=== PATIENT | male | born 1950 | race Caucasian/White ===

== ENCOUNTER → 2018-12-23 | Outpatient (CLI) | payer MEDICARE ==
[~2018-12-23] MED LIST: ALLEGRA180 MG; BENICAR HCT 401 EAC1; CARDIZEM30 MG; CELEBREX 200 M200 M1; FLOMAX0.4 MG PO; HYDROXYCHLOROQ200 M1 PO; LEXAPRO; NORCO 5-325 TA1 EACH PO; [UNRECOGNIZED DRUG - OTHER]
== END ==
LOC: M.ULTRA 12:53
DX: R10.32 Left lower quadrant pain (principal); M79.605 Pain in left leg; I73.9 Peripheral vascular disease, unspecified

== ENCOUNTER 2018-12-27 10:19 | Outpatient (CLI) | payer MEDICARE ==
[~2018-12-27] VITALS: Ht 175.3 cm; Wt 108.9 kg
[~2018-12-27 10:19] MED LIST changes: -CARDIZEM30 MG; -CELEBREX 200 M200 M1; -FLOMAX0.4 MG PO; -HYDROXYCHLOROQ200 M1 PO; -NORCO 5-325 TA1 EACH PO
[2018-12-27] MEDS ORDERED: HYDROXYCHLOROQ200 M1 PO (10:33)
[2018-12-27] MEDS ORDERED: CARDIZEM30 MG (10:33)
[2018-12-27] MEDS ORDERED: FLOMAX0.4 MG PO (10:33)
[2018-12-27] MEDS ORDERED: CELEBREX 200 M200 M1 (10:34)
[2018-12-27 11:13] LABS: ABSOLUTE BASOPHILS 0.1 thou/uL (0.0-0.2); ABSOLUTE EOSINOPHILS 0.4 thou/uL (0.0-0.7); ABSOLUTE LYMPHOCYTES 1.3 thou/uL (0.8-5.3); ABSOLUTE MONOCYTES 0.5 thou/uL (0.0-1.2); ABSOLUTE NEUTROPHILS 3.7 thou/uL (1.6-8.1); BASOPHILS 1.1 %; EOSINOPHILS 6.1 %; HEMATOCRIT 36.5 % (42.0-52.0); HEMOGLOBIN 12.9 gm/dL (14.0-18.0); LYMPHOCYTES 21.9 %; MCH 30.7 pg (26.0-34.0); MCHC 35.5 g/dL (28.0-37.0); MCV 86.6 fL (80.0-100.0); MONOCYTES 9.1 %; MPV 7.2 fl. (7.2-11.1); NUCLEATED RBCS 0 /100WBC; PLATELET COUNT* 251 thou/uL (150-400); POLYS 61.8 %; RBC 4.21 mil/uL (4.50-6.00); RDW-CV 13.9 % (10.5-14.5); WBC 5.9 thou/uL (4.0-11.0)
[2018-12-27 11:27] LABS: URINE BILIRUBIN NEGATIVE (Negative); URINE BLOOD NEGATIVE (Negative); URINE CLARITY CLEAR; URINE COLOR YELLOW; URINE GLUCOSE-RANDOM NEGATIVE (Negative); URINE KETONES NEGATIVE (Negative); URINE LEUKOCYTES-REFLEX NEGATIVE (Negative); URINE NITRITE-REFLEX NEGATIVE (Negative); URINE PROTEIN NEGATIVE (Negative); URINE UROBILINOGEN 0.2 E.U./dl (0.2-1.0)
[2018-12-27 11:30] LABS: ALBUMIN 4.1 g/dL (3.4-5.0); ALKALINE PHOSPHATASE 69 U/L (46-116); ANION GAP 13 mmol/L (7-16); BUN 16 mg/dL (7-18); CALCIUM 9.3 mg/dL (8.5-10.1); CHLORIDE 102 mmol/L (98-107); CO2 27 mmol/L (21-32); CREATININE 1.5 mg/dL (0.6-1.3); GLUCOSE 87 mg/dL (70-99); POTASSIUM 3.7 mmol/L (3.5-5.1); SGOT 20 U/L (15-37); SGPT 34 U/L (30-65); SODIUM 142 mmol/L (136-145); TOTAL BILIRUBIN 0.5 mg/dL (<0.1-1.0); TOTAL PROTEIN 7.9 g/dL (6.4-8.2); TROPONIN-I LEVEL <0.06 ng/mL (<0.06)
--- NOTE | 2018-12-27 14:54 | EKG ---
[place] [address] ELECTROCARDIOGRAM REPORT Name: TERRY COTO Room: [facility]#: [id number] Admission: 12/27/18 Attend Phys: Angus Foster MD Discharge: Date of : 48 Report #: [id number] THIS REPORT FOR: //name// [facility] ED Test Date: 2018-12-27 Test Time: 10:55:42 Pat Name: TERRY COTO Department: Room: Gender: M [employer] Operator: : 1950 Requested By: Zahira Clements Order Number: [id number] MD: Terry Jones Measurements Intervals [place] Rate: 59 P: AR: QRS: -34 QRSD: 127 T: 62 QT: 466 QTc: 462 Interpretive Statements sinus rhythm Nonspecific intraventricular conduction delay Probable septal infarct, old Compared to ECG 08/01/2008 11:56:27 Intraventricular conduction delay now present Myocardial infarct finding now present Ventricular premature complex(es) no longer present Prolonged QT interval no longer present Electronically Signed On 12-27-2018 14:54:11 CDT by Terry Jones [email or web address] <ELECTRONICALLY SIGNED> By: Terry Jones MD, FAC 12/27/18 1454 1055 1055 Terry Jones MD, [facility] /EPI
[2018-12-27] MEDS ORDERED: NORCO 5-325 TA1 EACH PO (15:14)
[2018-12-27 15:52] VITALS: BP 155/86
== END 2018-12-27 15:54 | disposition home or self-care (01) ==
LOC: M.ERS 15:54
PROVIDERS: Physician Assistant
DX: M54.42 Lumbago with sciatica, left side (principal); M79.662 Pain in left lower leg; I10 Essential (primary) hypertension; Z96.653 Presence of artificial knee joint, bilateral; Z98.890 Other specified postprocedural states

== ENCOUNTER → 2019-01-25 | Outpatient (CLI) | payer MEDICARE ==
[~2019-01-25] MED LIST changes: +CARDIZEM30 MG; +CELEBREX 200 M200 M1; +FLOMAX0.4 MG PO; +HYDROXYCHLOROQ200 M1 PO; +NORCO 5-325 TA1 EACH PO
== END ==
LOC: M.ULTRA 14:00
DX: M79.89 Other specified soft tissue disorders (principal); M79.662 Pain in left lower leg